=== PATIENT | female | born 1960 | race Caucasian/White ===

== ENCOUNTER → 2020-01-04 | Outpatient (CLI) | payer BC ==
[~2020-01-04] MED LIST: BENTYL 20 MG TA20 M1 PO; HUMALOG100 UNIT/2 SQ; LANTUS100 UNIT/M SUBQ; LEXAPRO 10 MG T10 M2 PO; LOPRESSOR25 PO; METFORMIN HCL500 MG PO; OMEPRAZOLE40 MG PO; ROSUVASTATIN CA20 MG PO; ZANTAC 150MG T150 MG PO
== END ==
LOC: SJCVCIMAG 07:31
PROVIDERS: ATTEND Internal Medicine
DX: I10 Essential (primary) hypertension (principal); R06.09 Other forms of dyspnea; E78.2 Mixed hyperlipidemia; E11.9 Type 2 diabetes mellitus without complications; Z90.710 Acquired absence of both cervix and uterus

== ENCOUNTER → 2020-02-10 | Outpatient (CLI) | payer BC | LOC: LAB 15:55 | PROVIDERS: ATTEND Nurse Practitioner | DX: I72.8 Aneurysm of other specified arteries (principal); K76.0 Fatty (change of) liver, not elsewhere classified; N20.0 Calculus of kidney; R10.9 Unspecified abdominal pain ==